=== PATIENT | female | born 1950 | race Caucasian/White ===

== ENCOUNTER → 2018-11-24 12:50 | Outpatient (CLI) | payer MEDICARE, OTHER, SELFPAY ==
[2018-11-24 14:19] LABS: Color, Urine Yellow (Yellow); Glucose, Dipstick 50 mg/dl (Normal); Ketone-Dipstick Negative (Negative); Leukocyte Esterase-Dipstick 25 /ul (Negative); Nitrite-Dipstick Negative (Negative); Occult Blood-Urine Negative /ul (Negative); Protein-Dipstick Negative (Negative); Urine Bilirubin Dipstick Negative (Negative); Urine Clarity Clear (Clear); Urine Urobilinogen Normal (Normal)
[2018-11-24 14:24] LABS: Erythrocyte Sedimentation Rate 6 mm/hr (0-30)
[2018-11-24 14:26] LABS: Absolute Lymphocyte Count 1.55 X10^3/uL (0.83-4.51); Absolute Neutrophil Count 6.7 X10^3/uL (2.0-7.7); Basophil# 0.04 X10^3/uL; Basophil% 0.4 % (0-1); Eosinophil# 0.05 X10^3/uL; Eosinophils% 0.6 % (0-5); Hematocrit 42.7 % (37-47); Hemoglobin 14.1 g/dL (12.0-15.0); Lymphocyte # 1.55 X10^3/ul (4.0); Lymphocyte % 17.1 % (19-41); Mean Corpuscular Hgb 30.9 pg (27.0-32.0); Mean Corpuscular Volume 93.6 fL (81-99); Monocyte# 0.67 X10^3/uL; Monocyte% 7.4 % (0-10); NRBC Flagged by Analyzer 0 % (0-5); Neutrophil # 6.73 X10^3/uL (2.7-7.7); Neutrophil % 74.1 % (47-70); Platelet Count 317 K/mm3 (150-450); RBC Distribution Width CV 13.1 % (11.6-14.6); Red Blood Count 4.56 M/mm3 (4.2-5.4); White Blood Count 9.1 K/mm3 (4.4-11.0)
[2018-11-24 14:29] LABS: Protein, Urine (Random) 12.5 mg/dL (<11.9); Protein:Creat Ratio 100 mg/g CRE (0-200)
[2018-11-24 14:30] LABS: EXAGEN MAILED SPECIMEN
[2018-11-24 14:41] LABS: ALB/GLOB Ratio 1.2 RATIO (0.9-2.4); AST(SGOT) 17 U/L (15-37); Alanine Aminotransfer ALT/SGPT 29 U/L (13-56); Albumin, Serum 3.8 g/dL (3.2-5.0); Alkaline Phosphatase 90 U/L (45-117); Anion Gap 6 (5-15); BUN 16 mg/dL (7-18); BUN/Creat Ratio 18.5 RATIO (10-20); CRP < 2.90 mg/L (0.0-3.0); Calcium,Total 9.2 mg/dL (8.5-10.1); Chloride 102 mmol/L (98-107); Creatinine, Serum 0.87 mg/dL (0.55-1.02); EST Glomerular Filtration Rate 69 mL/min (>60); Est Glom Filt Rate - Afr Amer 83 mL/min (>60); Globulin 3.3 g/dL (2.2-4.2); Glucose 248 mg/dL (74-106); Potassium 4.3 mmol/L (3.5-5.1); Protein, Total 7.1 g/dL (6.4-8.2); Sodium Level 139 mmol/L (136-145)
[2018-11-29 09:45] LABS: HLA B27 Negative (.)
== END ==
PROVIDERS: Family Provider Family Medicine; PCP Family Medicine; Referring Provider Internal Medicine Rheumatology; Visit Provider Internal Medicine Rheumatology
DX: M06.4 Inflammatory polyarthropathy (principal); M79.7 Fibromyalgia; L93.0 Discoid lupus erythematosus; E11.9 Type 2 diabetes mellitus without complications; Z79.899 Other long term (current) drug therapy
CPT/HCPCS: 36415; 80053; 81002; 81374; 82570; 84156; 85025; 85652; 86140

== ENCOUNTER → 2024-03-07 | Outpatient (CLI) | payer MEDICARE, OTHER, SELFPAY ==
--- NOTE | 2024-03-07 11:00 | RAD_ITS ---
STUDY: X-RAY CHEST REASON FOR EXAM: Female, 74 years old. INFLAMMATORY POLYARTHROPATHY, POSITIVE BRO TECHNIQUE: PA and lateral views of the chest. COMPARISON: None. FINDINGS: The lungs are clear and expanded. There is no demonstrated pleural abnormality. Normal size heart. Normal mediastinum and meeta. Normal visualized pulmonary arteries. Normal visualized aortic arch and descending thoracic aorta. There is demineralization of the osseous structures. There are diffuse degenerative changes of the visualized thoracic spine. Normal visualized ribs, clavicles, and shoulders. There is no demonstrated abnormality of the visualized soft tissue structures of the upper abdomen. RAD/Chest PA and Lateral IMPRESSION: Degenerative changes, as described above. No demonstrated acute cardiopulmonary process. Electronically Signed: Oli Robetrs MD at 8:32 EST ,
[2024-03-07 11:53] LABS: EXAGEN MAILED SPECIMEN
[2024-03-07 12:46] LABS: Color, Urine Yellow (Yellow); Glucose, Dipstick Normal (Normal); Ketone-Dipstick Negative (Negative); Leukocyte Esterase-Dipstick Negative /ul (Negative); Nitrite-Dipstick Negative (Negative); Occult Blood-Urine Negative /ul (Negative); Protein-Dipstick Negative (Negative); Specific Gravity, Urine 1.015 (1.002-1.030); Urine Bilirubin Dipstick Negative (Negative); Urine Clarity Clear (Clear); Urine Urobilinogen Normal (Normal)
[2024-03-07 12:52] LABS: Protein, Urine (Random) 14.8 mg/dL (<11.9); Protein:Creat Ratio 70 mg/g CRE (0-200)
[2024-03-07 15:48] LABS: ALB/GLOB Ratio 1.1 RATIO (0.9-2.4); AST(SGOT) 18 U/L (15-37); Alanine Aminotransfer ALT/SGPT 25 U/L (13-56); Albumin, Serum 3.6 g/dL (3.2-5.0); Alkaline Phosphatase 73 U/L (45-117); Anion Gap 6 (5-15); BUN 19 mg/dL (7-18); BUN/Creat Ratio 18.8 RATIO (10-20); CRP < 2.90 mg/L (0.0-3.0); Calcium,Total 9.2 mg/dL (8.5-10.1); Chloride 107 mmol/L (98-107); Creatinine, Serum 1.01 mg/dL (0.55-1.02); EST Glomerular Filtration Rate 57 mL/min (>60); Est Glom Filt Rate - Afr Amer 69 mL/min (>60); Globulin 3.3 g/dL (2.2-4.2); Glucose 111 mg/dL (74-106); Potassium 3.8 mmol/L (3.5-5.1); Protein, Total 6.9 g/dL (6.4-8.2); Sodium Level 140 mmol/L (136-145)
[2024-03-07 15:56] LABS: Erythrocyte Sedimentation Rate 10 mm/hr (0-30)
[2024-03-07 15:59] LABS: Absolute Neutrophil Count 7.4 X10^3/uL (2.0-7.7); Basophil# 0.05 X10^3/uL; Basophil% 0.5 % (0-1); Eosinophil# 0.05 X10^3/uL; Eosinophils% 0.5 % (0-5); Hematocrit 35.7 % (37-47); Hemoglobin 11.8 g/dL (12.0-15.0); Lymphocyte % 12.8 % (19-41); Mean Corp Hgb Conc 33.1 g/dL (32-36); Mean Corpuscular Hgb 30.9 pg (27.0-32.0); Mean Corpuscular Volume 93.5 fL (81-99); Mean Platelet Vol. 9.9 fl (6.2-12.0); Monocyte# 0.64 X10^3/uL; Monocyte% 6.8 % (0-10); NRBC Flagged by Analyzer 0 % (0-5); Neutrophil # 7.42 X10^3/uL (2.7-7.7); Platelet Count 331 K/mm3 (150-450); RBC Distribution Width CV 13.2 % (11.6-14.6); Red Blood Count 3.82 M/mm3 (4.2-5.4); White Blood Count 9.4 K/mm3 (4.4-11.0)
[2024-03-07 16:38] LABS: Hepatitis B Surface Antibody Non-Reactive; Hepatitis B Surface Antigen Non-Reactive (Nonreactive); Hepatitis C Antibody Non-Reactive (Nonreactive)
[2024-03-10 06:09] LABS: QNTFERON TB Mitogen Value > 10.00 IU/mL (.); QNTFERON TB Nil Value 0.01 IU/mL (.); QNTFERON TB1+ Ag Value 0 IU/mL (.); QNTFERON TB2+ Ag Value 0 IU/mL (.); QNTIFERON TB Positive Criteria Negative (Negative)
== END | disposition home or self-care (01) ==
LOC: MTLAB 10:40 → MTRAD 10:49
PROVIDERS: PCP Family Medicine; Referring Provider Internal Medicine Rheumatology; Visit Provider Internal Medicine Rheumatology
DX: M06.4 Inflammatory polyarthropathy (principal); R76.8 Other specified abnormal immunological findings in serum; M79.7 Fibromyalgia; K57.90 Diverticulosis of intestine, part unspecified, without perforation or abscess without bleeding
CPT/HCPCS: 36415; 71046; 80053; 81002; 82570; 84156; 85025; 85652; 86140; 86480; 86706; 86803; 87340

== ENCOUNTER → 2025-01-16 | Outpatient (CLI) | payer MEDICARE, OTHER, SELFPAY ==
--- NOTE | 2025-01-16 10:26 | NEURO ---
NCS and/or EMG Patient Report Ordering Doctor: Shira Olivera DATE OF SERVICE: 01/16/25 Ernestina presents with complaints of numbness and tingling in the right hand. Electrodiagnostic findings: Right median motor nerve demonstrates prolonged latency with normal amplitude and conduction velocity. Normal right ulnar motor response. Prolonged right median sensory latency at the wrist. Needle EMG testing was performed in the right upper limb. All muscles tested showed no evidence of denervation with normal motor unit action potentials. Electrodiagnostic impression: This is an abnormal study in the right upper limb 1. Electrodiagnostic findings suggestive of right sided median mononeuropathy. This is consistent with a mild right carpal tunnel syndrome. Multi Select Codes Neurology Neurology Interp Codes: 23748-71 Musc test done w/n test comp (interp) and 28878-90 Nrv cndj tst 5-6 studies (interp)
== END | disposition home or self-care (01) ==
PROVIDERS: PCP Family Medicine; Referring Provider Physician Assistant; Visit Provider Physician Assistant
DX: R20.2 Paresthesia of skin (principal); M79.641 Pain in right hand
CPT/HCPCS: 95886; 95909